=== PATIENT | female | born 1945 | race Caucasian/White ===

== ENCOUNTER 2017-06-14 13:24 | Outpatient (CLI) | payer MEDICARE, BC ==
--- NOTE | 2017-06-14 14:31 | RAD ---
CHEST TWO VIEWS: HISTORY: Dyspnea. COMPARISON: Chest radiograph from 08/05/2016. FINDINGS: The lungs are clear, although hyperinflated. No focal air space consolidation, pneumothorax, or effu fernanda. No acute osseous abnormality. IMPRESSION: No acute intrathoracic abnormality. POS: MADHURIH
== END 2017-06-14 13:25 | disposition home or self-care (01) ==
LOC: RAD 13:24
PROVIDERS: ATTEND Internal Medicine
DX: R06.00 Dyspnea, unspecified (principal)
CPT/HCPCS: 71046

== ENCOUNTER 2017-07-13 13:21 | Outpatient (CLI) | payer MEDICARE, BC | END 2017-07-13 13:22 | disposition home or self-care (01) | LOC: CP 13:21 | PROVIDERS: ATTEND Internal Medicine | DX: R06.02 Shortness of breath (principal); R06.00 Dyspnea, unspecified; Z72.0 Tobacco use | CPT/HCPCS: 94060; 94727; 94729 ==

== ENCOUNTER 2018-11-23 10:49 | Outpatient (CLI) | payer MEDICARE, BC ==
--- NOTE | 2018-11-23 12:56 | RAD ---
CHEST TWO VIEWS: INDICATIONS: History of weight loss with family history provided of colon cancer. COMPARISON: 06/14/2017 FINDINGS: The lungs are hyperinflated. No consolidation or effusion. No discrete pneumothorax. The cardiomedias tinal silhouette is stable. IMPRESSION: Chronic obstructive pulmonary disease. POS: C
== END 2018-11-23 10:50 | disposition home or self-care (01) ==
LOC: BICRAD 10:49
PROVIDERS: ATTEND Internal Medicine Gastroenterology
DX: R63.4 Abnormal weight loss (principal); R10.9 Unspecified abdominal pain; R13.12 Dysphagia, oropharyngeal phase; J44.9 Chronic obstructive pulmonary disease, unspecified; Z80.0 Family history of malignant neoplasm of digestive organs; Z86.010 Personal history of colon polyps
CPT/HCPCS: 71046

== ENCOUNTER 2018-12-04 09:30 | Outpatient (CLI) | payer MEDICARE, BC ==
[~2018-12-04 09:30] MED LIST: Iopamidol 370 76% 100 ML VIAL ONE
--- NOTE | 2018-12-04 10:35 | CT ---
CT ABDOMEN AND PELVIS: 12/04/2018 HISTORY: Weight loss, epigastric pain COMPARISON: None. TECHNIQUE: Axial CT imaging at 5 mm intervals from the lung bases through the pubic symphysis with IV and oral c ontrast. Coronal and sagittal reformatted imaging obtained. FINDINGS: The imaged lung bases are grossly unremarkable. No free intraperitoneal air or fluid. There are a few tiny foci of hypodensity within the hepatic parenchyma with no dominant lesion seen. The gallbladder, spleen, pancreas, adrenal glands, and kidneys demonstrate no acute findings. There is no focal area of bowel inflammatory change. There is no evidence for bowel obstruction. Portions of the colon are not well assessed secondary to decompression, which includes the cecum and the descending colon. There is multifocal scattered atherosclerotic calcification involving the infrarenal abdominal aorta and the arterial structures of the pelvis. No lymphadenopathy is evident within the abdomen or pelvis. The celiac axis, superior mesenteric artery, and inferior mesenteric artery are patent. Review of the osseous structures demonstrates no worrisome lytic or blastic bone lesions. There is mu ltilevel lower lumbar spine facet hypertrophic change. IMPRESSION: Incidental findings as described above. No acute findings are seen within the abdomen/pelvis. Transcribed Date/Time: 12/04/2018 11:46 AM
== END 2018-12-04 09:31 | disposition home or self-care (01) ==
LOC: SCSCT 09:30
PROVIDERS: ATTEND Internal Medicine Gastroenterology
DX: R63.4 Abnormal weight loss (principal); R10.13 Epigastric pain
CPT/HCPCS: 74177; 82565; Q9967

== ENCOUNTER 2025-01-16 05:57 | Day surgery (SDC) | payer MEDICARE, BC ==
[2025-01-14 15:00] VITALS: BMI 15.6
[2025-01-16] MEDS ORDERED: PROPOFOL 200 MG/20 ML VIAL ONE (07:42)
== END 2025-01-16 09:13 | disposition home or self-care (01) ==
LOC: SDC 05:57
PROVIDERS: ATTEND Internal Medicine Gastroenterology
PROC: 0DB98ZX Excision of Duodenum, Via Natural or Artificial Opening Endoscopic, Diagnostic (ICD-10-PCS; principal; 2025-01-16)
PROC: 0DB78ZX Excision of Stomach, Pylorus, Via Natural or Artificial Opening Endoscopic, Diagnostic (ICD-10-PCS; 2025-01-16)
PROC: 0DB48ZX Excision of Esophagogastric Junction, Via Natural or Artificial Opening Endoscopic, Diagnostic (ICD-10-PCS; 2025-01-16)
PROC: 0DBK8ZZ Excision of Ascending Colon, Via Natural or Artificial Opening Endoscopic (ICD-10-PCS; 2025-01-16)
PROC: 0DBL8ZZ Excision of Transverse Colon, Via Natural or Artificial Opening Endoscopic (ICD-10-PCS; 2025-01-16)
PROC: 0DBN8ZZ Excision of Sigmoid Colon, Via Natural or Artificial Opening Endoscopic (ICD-10-PCS; 2025-01-16)
PROC: 0D737ZZ Dilation of Lower Esophagus, Via Natural or Artificial Opening (ICD-10-PCS; 2025-01-16)
DX: D12.3 Benign neoplasm of transverse colon (principal); D12.2 Benign neoplasm of ascending colon; K44.9 Diaphragmatic hernia without obstruction or gangrene; K21.00 Gastro-esophageal reflux disease with esophagitis, without bleeding; K63.5 Polyp of colon; K29.80 Duodenitis without bleeding; K31.A19 Gastric intestinal metaplasia without dysplasia, unspecified site; K29.50 Unspecified chronic gastritis without bleeding; B96.81 Helicobacter pylori [H. pylori] as the cause of diseases classified elsewhere; F17.200 Nicotine dependence, unspecified, uncomplicated; Z98.49 Cataract extraction status, unspecified eye; Z98.51 Tubal ligation status; Z86.0101 Personal history of adenomatous and serrated colon polyps; Z90.710 Acquired absence of both cervix and uterus; Z90.49 Acquired absence of other specified parts of digestive tract; Z91.041 Radiographic dye allergy status; Z88.5 Allergy status to narcotic agent; Z88.2 Allergy status to sulfonamides; Z88.6 Allergy status to analgesic agent; Z91.0110 Allergy to milk products, unspecified
CPT/HCPCS: 43239; 43450; 45385; J2704; 88305; 88342